=== PATIENT | female | born 1995 | race Two or more races ===

== ENCOUNTER 2022-03-07 02:59 | Emergency (ER) | payer OTHER ==
[~2022-03-07] VITALS: Ht 154.9 cm; Wt 74.8 kg
[2022-03-07 03:18] VITALS: BP 122/79
[2022-03-07] MEDS ORDERED: KETOROLAC TROMETH 60MG/2ML VIAL IM ONE (03:45)
== END 2022-03-07 06:23 | disposition home or self-care (01) ==
LOC: EEVIPCON 02:59 → ER 02:59
DX: S00.83XA Contusion of other part of head, initial encounter (principal); M25.561 Pain in right knee; W06.XXXA Fall from bed, initial encounter; Y93.89 Activity, other specified; Y92.89 Other specified places as the place of occurrence of the external cause; Y99.8 Other external cause status
CPT/HCPCS: 70450; 73562; 96372; 99284; J1885